=== PATIENT | female | born 1960 | race Caucasian/White ===

== ENCOUNTER → 2017-01-29 | Outpatient (CLI) | payer BC ==
[~2017-01-29] MED LIST: ASPI81TA28 PO; EFFSR75 PO; FAMO20TA9 PO; MESA800T2 PO; MULTTAB PO; OMEG10007 PO; PRM/3 PO; PROP120C PO
== END | disposition home or self-care (01) ==
LOC: C.RDSM 07:30
PROVIDERS: ATTEND Physical Medicine & Rehabilitation Sports Medicine
DX: M79.645 Pain in left finger(s) (principal)